=== PATIENT | male | born 1950 | race Caucasian/White ===

== ENCOUNTER 2020-01-12 07:30 | Inpatient (IN) ==
[2020-01-05 00:33] LABS: Hemoglobin A1C 5.9 % HGB (4.0-6.0)
[~2020-01-12 07:30] MED LIST: CELECOXIB 200 MG CAPSULE PO SCH; PREGABALIN 75 MG CAPSULE PO SCH; ceFAZolin 2 GM in DEXTROSE 5% IN WATER 50 ML IV SCH; oxyCODONE 10 MG TAB.ER.12H PO SCH
[2020-01-12 08:56] LABS: POC Blood Urea Nitrogen 20 mg/dl (8-23); POC CO2 24 mmol/L (22-30); POC Calcium, Ionized 1.22 mmol/L (1.16-1.32); POC Chloride 103 mmol/L (96-108); POC Glucose, Random 139 mg/dL (70-105); POC Potassium 4.7 mmol/L (3.3-5.1); POC Sodium 138 mmol/L (133-145)
[2020-01-12] MEDS ORDERED: IPRATROPIUM/ALBUTEROL 3 ML AMPUL.NEB NEB PRN ×2 (10:30→11:47)
[2020-01-12] MEDS ORDERED: SCOPOLAMINE 1 PATCH PATCH TOPICAL PRN (10:30)
[2020-01-12] MEDS ORDERED: ONDANSETRON 4 MG/2 ML VIAL IV ONE (10:36)
[2020-01-12] MEDS ORDERED: SUCCINYLCHOLINE 20 MG/ML ML IV ONE (10:36)
[2020-01-12] MEDS ORDERED: LIDOCAINE HCL/PF 100 MG/5 ML SYRINGE IV ONE (10:36)
[2020-01-12] MEDS ORDERED: GLYCOPYRROLATE 0.2 MG/ML VIAL IV ONE (10:36)
[2020-01-12] MEDS ORDERED: HYDROmorphone 1 MG/ML SYRINGE IV ONE (10:36)
[2020-01-12] MEDS ORDERED: ROCURONIUM 10 MG/ML ML IV ONE (10:36)
[2020-01-12] MEDS ORDERED: DEXAMETHASONE 10 MG/ML VIAL IV ONE (10:36)
[2020-01-12] MEDS ORDERED: PROPOFOL 200 MG/20 ML VIAL IV ONE (10:36)
[2020-01-12] MEDS ORDERED: PHENYLEPHRINE 10 MG/ML VIAL IV ONE (10:36)
[2020-01-12] MEDS ORDERED: fentaNYL 250 MCG/5 ML VIAL IV ONE (10:36)
[2020-01-12] MEDS ORDERED: TRANEXAMIC ACID 1,000 MG/10 ML VIAL IV ONE (10:36)
[2020-01-12] MEDS ORDERED: ROPIVACAINE HCL/PF 20 ML VIAL IJ ONE (10:36)
[2020-01-12] MEDS ORDERED: KETAMINE 100 MG/ML ML IV ONE (10:36)
[2020-01-12] MEDS ORDERED: ATROPINE SULFATE 0.4 MG/ML VIAL IV PRN (11:47)
[2020-01-12] MEDS ORDERED: MEPERIDINE 25 MG/ML SYRINGE IV PRN (11:47)
[2020-01-12] MEDS ORDERED: ONDANSETRON 4 MG/2 ML VIAL IV PRN ×2 (11:47→12:35)
[2020-01-12] MEDS ORDERED: NALOXONE HCL 0.4 MG/ML VIAL IV PRN (11:47)
[2020-01-12] MEDS ORDERED: ACETAMINOPHEN 1,000 MG/100 ML BOTTLE IV ONE (11:47)
[2020-01-12] MEDS ORDERED: FLUMAZENIL 0.1 MG/ML ML IV PRN (11:47)
[2020-01-12] MEDS ORDERED: ePHEDrine 50 MG/ML AMPUL IV PRN (11:47)
[2020-01-12] MEDS ORDERED: diphenhydrAMINE 50 MG/ML VIAL IV PRN (11:47)
[2020-01-12] MEDS ORDERED: METOPROLOL TARTRATE 5 MG/5 ML VIAL IV PRN (11:47)
[2020-01-12] MEDS ORDERED: PROMETHAZINE 25 MG/ML VIAL IV PRN (11:47)
[2020-01-12] MEDS ORDERED: METHOCARBAMOL 1,000 MG/10 ML VIAL IV PRN (11:47)
[2020-01-12] MEDS ORDERED: HYDROmorphone 0.5 MG/0.5 ML SYRINGE IV PRN (11:47)
[2020-01-12] MEDS ORDERED: POLYETHYLENE GLYCOL 3350 17 GM PACKET PO PRN (12:35)
[2020-01-12] MEDS ORDERED: HYDROmorphone 1 MG/ML SYRINGE IV PRN (12:35)
[2020-01-12] MEDS ORDERED: TRANEXAMIC ACID 1,000 MG/10 ML VIAL IV SCH (12:35)
[2020-01-12] MEDS ORDERED: MAGNESIUM HYDROXIDE 30 ML ORAL.SUSP PO PRN (12:35)
[2020-01-12] MEDS ORDERED: BISACODYL 10 MG SUPP.RECT PR PRN (12:35)
[2020-01-12] MEDS ORDERED: FLEETS ADULT ENEMA PR PRN (12:35)
[2020-01-12] MEDS ORDERED: BENZOCAINE/MENTHOL 1 LOZENGE PO PRN (12:35)
--- NOTE | 2020-01-12 12:35 | Brief Operative Note ---
Brief Operative Note Date of procedure: 01/12/20 Pre-op diagnosis: Left shoulder severe DJD with retained rtc anchor Post-op diagnosis: same Procedure: 1)Left total shoulder arthroplasty 2)hardware removal deep of RTC anchor 3)biceps tenodesis Grafts/Implants: Yes (Tornier cortiloc L40 glenoid, 2 simpliciti nucleus, 48 x 18 head) Anesthesia: GETA Findings: severe arthritis, intact RTC Complications: none Surgeon: Rudy Evans Specimens Removed/Pathology: other (rtc anchor) Condition: stable Disposition: PACU
--- NOTE | 2020-01-12 13:07 | Operative Note ---
DATE OF OPERATION: 01/12/2020 PREOPERATIVE DIAGNOSES: Left shoulder severe osteoarthritis with retained rotator cuff anchor. POSTOPERATIVE DIAGNOSES: Left shoulder severe osteoarthritis with retained rotator cuff anchor. PROCEDURE PERFORMED: 1. Left total shoulder arthroplasty placing a Tornier Cortiloc size large 40 curvature glenoid; a size 2 Simpliciti nucleus with a 48 x 18 head. 2. Biceps tenodesis. 3. Hardware removal deep of rotator cuff anchor. SURGEON: Rudy Evans M.D. ACCOUNTS CLERK: Douglas Parry PA-C. The PA's assistance was required for the safe and efficient completion of the entire case. This provider's expertise and technical skill were required throughout the case. The PA assisted with preoperative coordination, intraoperative retraction, wound closure, dressing and splint application, as well as postoperative documentation and care coordination. DRAINS: None. SPECIMENS: Rotator cuff anchor which was sterilized, I think and given to the patient. BLOOD LOSS: 250 mL. COMPLICATIONS: None. POSTOPERATIVE CONDITION: Stable. INDICATIONS FOR SURGERY: This is a 69-year-old male who has had longstanding, progressive worsening shoulder pain. He has a history of rotator cuff repair done years ago. His x-rays showed [id number] osteoarthritis. His rotator cuff strength was good. FINDINGS AT SURGERY: He did have severe utyk-ye-arkq arthritis. However, the rotator cuff was intact. Post-replacement showed good component position and stability. PROCEDURE IN DETAIL: The patient had been seen preoperatively. Informed consent had been obtained after discussion of risks and benefits of surgery. Risks including, but not limited to, bleeding, possibly requiring transfusion; infection, possibly requiring implant removal, prolonged IV antibiotics; injury to nerves, blood vessels, other surrounding structures; anesthetic risks; incomplete or no resolution of symptoms; stiffness; pain; dislocation; fracture; possibility of needing further revision surgery. He understood and wished to proceed. Correct operative site was marked and then patient was taken to the operating room. General anesthesia induced. He was carefully positioned in the beach chair position and pressure points carefully padded. Left shoulder and upper extremity were then carefully prepped and draped in normal sterile fashion. Timeout was performed verifying patient name, operative site, and plan. Ioban was used to cover all skin surfaces and a standard deltopectoral incision was made with a scalpel through skin and subcutaneous tissue. Hemostasis was obtained with Bovie cautery. We continued careful blunt dissection down onto the cephalic vein. This was dissected lateral with the deltoid. We continued dissecting down through the deltopectoral interval and then subdeltoid space was developed with blunt finger dissection. The lateral edge of the conjoined tendon was identified and blue handle retractor placed underneath. Irrisept was irrigated. He did have significant scarring from prior surgery. We identified the biceps and unroofed this through the rotator interval and then amputated the biceps, and then a large curved osteotome was used to perform a lesser tuberosity osteotomy. I then placed a traction stitch around it in a yhmxcf-fi-xevly around the lesser tuberosity osteotomy and then we started dislocating the shoulder out anteriorly and releasing capsule along the inferior neck. Once we had this fully exposed, a curved osteotome was used to remove osteophytes and then a cut guide was used to make our humeral head cut along his anatomic neck. We did run into the anchor with the saw blade, so I did end up using an osteotome to complete the osteotomy and lever it and then we used pliers to pull the anchor out. Once this was done, we then sized this to a 2 and then drilled our pin. We then used the planer to plane down until we had a flat surface. I then used the central reamer and then we punched over top of that and then left the cut protector in place. We then exposed the glenoid carefully. Labrum was removed circumferentially and then Bovie was used keeping right on bone to release capsule circumferentially. Once we had adequate exposure, we sized this to a size 40 curvature large glenoid. We then used the 10 degree anteverting guide pin and placed our guide. We then reamed until we had contact circumferentially and then used the windshield wiper reamer for superior and inferior. Once we had that prepped, we drilled our central peg over the guide pin. We then placed our 3-hole peripheral drill guide and drilled our three peripheral pegs. We then trialed this and it fit well, so we went ahead and opened a large 40 glenoid. We irrigated with Irrisept. Cement was mixed, and we irrigated with saline, and then cemented the three peripheral peg holes and then DBX was placed in the flute of the central peg and then this was impacted. This was held perfectly still until cement had fully hardened. We then re-exposed our humerus. We placed a 48 humeral head which fit best and checked our posterior subluxation. This was about 50%. We then re-exposed the humerus and removed the trial implants. A size 2 nucleus was opened. We irrigated with Irrisept, after a minute pulse lavaged with saline, and the nucleus was impacted and then a 48 was carefully impacted onto the nucleus. We verified again posterior subluxation of about 50%. We then made drill holes in the bicipital groove. We irrigated with Irrisept, after a minute irrigated with pulse lavage. A #2 FiberWire zxgsoi-hg-fogts was used around the lesser tuberosity osteotomy. We also placed a #2 axrscz-tp-xonne in the rotator interval and then a free needle was used to use our traction stitch through bone lateral to the bicipital groove. We checked our rotation and then this was a stable lesser tuberosity repair. We then did another Irrisept irrigation, after a minute more pulse lavage. A #1 Vicryl running stitch was used for the deltopectoral interval. Final Irrisept irrigation was done, after a minute final pulse lavage, and then 2-0 Monocryl was used for subcutaneous and oliver for skin. Xeroform and sterile dressing were applied and then arm was placed in a Donjoy abductor immobilizer. The patient was awakened, extubated, and transferred to recovery in stable condition. MARILEE:arnold Job ID: [id number] Doc ID: [id number] Rudy Evans MD
[2020-01-12] MEDS: fentaNYL 100 MCG/2 ML VIAL IV PRN ×2 (13:19→13:29)
--- NOTE | 2020-01-12 14:07 | XRay Report ---
HISTORY: Postop left shoulder arthroplasty FINDINGS: There is a well-positioned left shoulder prosthesis. Axillary view demonstrates a longitudinal fracture through the base of one of the tuberosities. This is mildly displaced anteriorly and retracted proximally. There are several old healed left lateral rib fractures. IMPRESSION: Fractured tuberosity in the proximal humerus Interpreted and Authenticated by: Bishop Mosley 01/12/20
[2020-01-12] MEDS: 0.9 % SODIUM CHLORIDE 10 ML SYRINGE IV SCH ×2 (14:19→21:55)
[2020-01-12] MEDS: 0.9 % SODIUM CHLORIDE 1,000 ML IV SCH ×2 (14:23→21:50)
[2020-01-12] MEDS: KETOROLAC 15 MG/ML VIAL IV PRN (16:49)
[2020-01-12] MEDS: ceFAZolin 1 GM VIAL IV SCH (18:00)
[2020-01-12] MEDS: HYDROcodone/APAP 10/325MG TABLET PO PRN ×2 (18:06→21:50)
[2020-01-12] MEDS ORDERED: SENNOSIDES 1 TABLET PO SCH (21:00)
[2020-01-12] MEDS: DOCUSATE SODIUM 100 MG CAPSULE PO SCH (21:48)
[2020-01-13] MEDS: ceFAZolin 1 GM VIAL IV SCH (02:42)
[2020-01-13] MEDS: HYDROcodone/APAP 10/325MG TABLET PO PRN ×4 (02:52→13:12)
[2020-01-13] MEDS: 0.9 % SODIUM CHLORIDE 10 ML SYRINGE IV SCH (04:30)
[2020-01-13] MEDS: 0.9 % SODIUM CHLORIDE 1,000 ML IV SCH ×2 (04:45→12:45)
[2020-01-13] MEDS ORDERED: CALCIUM CARBONATE 500 MG TAB.CHEW CHEWED PRN (07:40)
--- NOTE | 2020-01-13 07:50 | Discharge Plan ---
Discharge Instructions - TSA Patient Instructions Total Shoulder Protocol: Leave immobilizer in place except for bathing and ROM. Abduction pillow. Continue to wear sling until seen by physician. Codman Pendulum : These exercises use momentum produced by your body to move your shoulder joint. Bend your knees and shift your weight to your front leg, then back, allowing your arm to swing in the same directions. Using the same technique, alternately shift your weight between your right and left legs, allowing your arm to swing from side to side. These exercises are also performed in counterclockwise and clockwise circular motions. Typically these exercises are performed several times per day, for a set number repetitions or minutes, such as 20 times in a row or 5 minutes at a time. Discharge Plan Patient/Caregiver Discharge Instructions Diet: Regular Diet Prescriptions: New hydrocodone-acetaminophen 10-325 mg Tablet 1 - 2 tab PO Q4 Qty: 60 RF: 0 No Action lisinopril 20 mg tablet 20 mg PO QDAY Qty: 90 RF: 0 naproxen sodium [Aleve] 220 mg tablet 440 mg PO QDAY PRN (Reason: Pain) RF: 0 Other Ambulatory Orders: Brace/Splint (ONCE) Location: None Selected Ordered By: Rudy Evans Physical Therapy DC - TSA (Routine) Location: None Selected Ordered By: Rudy Evans Follow Up Plan Follow up with: Mango Akhtar PA-C [Physician Color Laboratory Technician] - 01/27/20 10:00 am Patient Disposition: Home, Self-Care Discharge Orders: Discharge Order (Routine); Ordered 01/13/20 Ordered By: Rudy Evans
[2020-01-13] MEDS: DOCUSATE SODIUM 100 MG CAPSULE PO SCH (08:28)
[2020-01-13] MEDS ORDERED: LISINOPRIL 20 MG TABLET PO SCH (09:00)
[2020-01-13] MEDS ORDERED: PNEUMOCOCCAL 23-VAL P-SAC VAC 0.5 ML SYRINGE IM ONE (10:00)
[2020-01-13] MEDS: KETOROLAC 15 MG/ML VIAL IV PRN (12:29)
== END 2020-01-13 13:47 | disposition home or self-care (01) | DRG 483 ==
LOC: MEDSUR 08:19
PROVIDERS: ADMIT Orthopaedic Surgery; ATTEND Orthopaedic Surgery